=== PATIENT | female | born 1995 | race Caucasian/White ===

== ENCOUNTER 2016-12-11 15:21 | Emergency (ER) | payer BC | END 2016-12-11 16:15 | disposition home or self-care (01) | LOC: ER1 15:21 | DX: S50.811A Abrasion of right forearm, initial encounter (principal); F17.210 Nicotine dependence, cigarettes, uncomplicated; Z88.5 Allergy status to narcotic agent; Z91.040 Latex allergy status; Z23 Encounter for immunization; W61.91XA Bitten by other birds, initial encounter | CPT/HCPCS: 90471; 90715; 99283 ==